=== PATIENT | female | born 1985 ===

== ENCOUNTER 2019-08-30 20:27 | Emergency (ER) | payer SELFPAY ==
[2019-08-30 22:22] LABS: Bacteria,Urine 3+ /HPF (Negative); Bilirubin,Urine NEG (Negative); Blood,Urine NEG (Negative); Color,Urine Yellow (Yellow); Mucus,Urine 3+ /HPF; Urobilinogen,Urine < 2.0 mg/dL (<2.0)
[2019-08-31 02:22] LABS: Basophils % (Auto) 0.4 % (0.0-1.8); Hematocrit 43.3 % (30.3-42.9); Hemoglobin 14.8 gm/dl (10.1-14.3); Lymphocytes # (Auto) 1.4 K/mm3 (1.2-5.4); Lymphocytes % (Auto) 10.6 % (13.4-35.0); Mean Corpuscular HGB Conc 34 % (30-34); Mean Corpuscular Volume 89 fl (79-97); Monocytes # (Auto) 0.2 K/mm3 (0.0-0.8); Monocytes % (Auto) 1.6 % (0.0-7.3); Platelet Count 289 K/mm3 (140-440); Red Blood Count 4.89 M/mm3 (3.65-5.03); Red Cell Distribution Width 12.7 % (13.2-15.2)
[2019-08-31 02:40] LABS: Alanine Aminotransferase 32 units/L (7-56); Albumin 4.8 g/dL (3.9-5); BUN/Creatinine Ratio 34; Blood Urea Nitrogen 17 mg/dL (7-17); Calcium 9.7 mg/dL (8.4-10.2); Hemolysis Index 15
[2019-08-31] MEDS ORDERED: fentaNYL 100 MCG/2 ML INJ IV ONE (03:30)
[2019-08-31] MEDS ORDERED: ONDANSETRON 4 MG/2 ML INJ IV ONE (03:30)
[2019-08-31] MEDS ORDERED: KETOROLAC 30 MG/1 ML INJ IV ONE (03:31)
[2019-08-31] MEDS ORDERED: SODIUM CHLORIDE 0.9% 1000 ML 1,000 ML IV ONE (03:31)
--- NOTE | 2019-08-31 03:46 | Emergency Department Report ---
HPI - General Chief Complaint: Abdominal Pain Time Seen by Provider: 08/31/19 03:13 - HPI HPI: Room 26 The patient is a 33-year-old female present with a chief complaint of abdominal pain. The patient states her symptoms began 3 days ago with a diffuse abdominal pain that was constant in nature. Patient admits to a fever in addition to nausea vomiting and diarrhea yesterday. Patient denies dysuria or hematuria. Patient gives her pain a score of 8/10. Patient denies sick contacts ED Past Medical Hx - Past Medical History Previous Medical History?: Yes Additional medical history: Ectopic - Surgical History Past Surgical History?: No Additional Surgical History: Right ectopic - Family History Family history: no significant - Social History Smoking Status: Never Smoker Substance Use Type: None - Medications Home Medications: Home Medications Medication Instructions Recorded Confirmed Last Taken Type Famotidine [Pepcid] 40 mg PO QHS #10 tablet 02/20/19 Unknown Rx Nitrofurantoin Graves/M-Cryst 100 mg PO Q12HR #6 capsule 02/20/19 Unknown Rx [Macrobid CAP] Ondansetron [Zofran Odt] 4 mg PO Q8HR #10 tab.rapdis 02/20/19 Unknown Rx Ciprofloxacin HCl [Ciprofloxacin 500 mg PO Q12HR #14 tab 08/31/19 Unknown Rx TAB] HYDROcodone/APAP 5-325 [Redby 1 each PO Q6HR PRN #10 tablet 08/31/19 Unknown Rx 5/325] Promethazine [Phenergan] 25 mg PO Q6HR PRN #20 tab 08/31/19 Unknown Rx Promethazine [Phenergan] 25 mg VA Q6HR PRN #5 supp.rect 08/31/19 Unknown Rx ED Review of Systems ROS: Stated complaint: EMESIS/DIARRHEA/SEVERE ABD PAIN Other details as noted in HPI Constitutional: fever Eyes: denies: eye pain ENT: denies: throat pain Respiratory: no symptoms reported Cardiovascular: denies: chest pain Endocrine: no symptoms reported Gastrointestinal: abdominal pain, nausea, vomiting, diarrhea Genitourinary: denies: dysuria, hematuria Musculoskeletal: denies: back pain Neurological: denies: headache Physical Exam - Physical Exam Vital Signs: Vital Signs 08/30/19 21:24 Temperature 98.6 F Pulse Rate 104 H Respiratory 18 Rate Blood Pressure 122/76 [Right] O2 Sat by Pulse 100 Oximetry Physical Exam: GENERAL: The patient is well-developed well-nourished female lying on stretcher not appearing to be in acute distress. [] HEENT: Normocephalic. Atraumatic. Extraocular motions are intact. Patient has moist mucous membranes. NECK: Supple. Trachea midline CHEST/LUNGS: Clear to auscultation. There is no respiratory distress noted. HEART/CARDIOVASCULAR: Regular. There is tachycardia. There is no gallop rub or murmur. ABDOMEN: Abdomen is soft, with tenderness to palpation in the left lower quadrant and left upper quadrant. There is no tenderness to palpation in the right lower quadrant. Patient has normal bowel sounds. There is no abdominal distention. SKIN: There is no rash. There is no edema. There is no diaphoresis. NEURO: The patient is awake, alert, and oriented. The patient is cooperative. The patient has normal speech MUSCULOSKELETAL: There is no evidence of acute injury. ED Course Vital Signs 08/30/19 21:24 Temperature 98.6 F Pulse Rate 104 H Respiratory 18 Rate Blood Pressure 122/76 [Right] O2 Sat by Pulse 100 Oximetry ED Medical Decision Making - Lab Data Result diagrams: 08/31/19 02:02 08/31/19 02:02 - Differential Diagnosis Diverticulitis, gastroenteritis, UTI, pyelonephritis Critical care attestation.: If time is entered above; I have spent that time in minutes in the direct care of this critically ill patient, excluding procedure time. ED Disposition Clinical Impression: Left ovarian cyst, Nausea vomiting and diarrhea, UTI (urinary tract infection) Disposition: DC-01 TO HOME OR SELFCARE Is pt being admited?: No Does the pt Need Aspirin: No Condition: Stable Instructions: Abdominal Pain (ED) Additional Instructions: Return to the emergency department should you develop worsening symptoms, inability to tolerate food or liquids, high fever or any other concerns Prescriptions: Ciprofloxacin HCl [Ciprofloxacin TAB] 500 mg PO Q12HR #14 tab HYDROcodone/APAP 5-325 [Redby 5/325] 1 each PO Q6HR PRN #10 tablet PRN Reason: Pain Promethazine [Phenergan] 25 mg PO Q6HR PRN #20 tab PRN Reason: Nausea Promethazine [Phenergan] 25 mg VA Q6HR PRN #5 supp.rect PRN Reason: Vomiting Referrals: [facility] [Provider Group] - 3-5 Days Time of Disposition: 06:12
--- NOTE | 2019-08-31 05:37 | Cat Scan Report ---
CT OF THE ABDOMEN AND PELVIS WITH INTRAVENOUS CONTRAST INDICATION / CLINICAL INFORMATION: Left lower quadrant pain. TECHNIQUE: The patient received 100 cc Omnipaque [address] scans at this location are performed using CT dose reduction for ALARA by means of automated exposure control. COMPARISON: 02/20/19. FINDINGS: ABDOMEN: The liver, spleen, gallbladder, bile ducts, pancreas, adrenal glands, kidneys and bowel demo nstrate no significant abnormality. No adenopathy is seen. The lung bases are clear. PELVIS: There is a 4 cm slightly thick-walled left ovarian cyst without significant free fluid. The u terus and right adnexa are normal. A normal appendix is present and there is no evidence of diverticu litis. I do not identify a hernia. No acute osseous abnormality is seen. IMPRESSION: 4 cm slightly thick-walled left ovarian cyst is likely physiologic. Signer Name: Waqar Lo MD Signed: 08/31/2019 5:32 AM Workstation Name: [id number]
[2019-08-31] MEDS ORDERED: KETOROLAC 30 MG/1 ML INJ ONE (05:38)
[2019-08-31] MEDS ORDERED: ONDANSETRON 4 MG/2 ML INJ ONE (05:38)
[2019-08-31] MEDS ORDERED: fentaNYL 100 MCG/2 ML INJ ONE (05:38)
[2019-08-31 05:57] VITALS: BP 121/76
== END 2019-08-31 06:15 | disposition home or self-care (01) ==
LOC: ED 20:27
DX: N83.202 Unspecified ovarian cyst, left side (principal); N39.0 Urinary tract infection, site not specified; R11.2 Nausea with vomiting, unspecified; R19.7 Diarrhea, unspecified; Z79.899 Other long term (current) drug therapy; Z98.890 Other specified postprocedural states
CPT/HCPCS: 36415; 74177; 80053; 81001; 84703; 85025; 87086; 96374; 96375; 99284; J1885; J2405; J3010; J7030; Q9967